=== PATIENT | male | born 1990 | race Hispanic/Latino ===

== ENCOUNTER 2018-03-25 18:17 | Inpatient (IN) | payer OTHER, SELFPAY ==
[~2018-03-25 18:17] MED LIST: ISOVUE-370 76%-LOCM 1 ML ONE
[2018-03-25] MEDS ORDERED: Fentanyl 100 MCG/2 ML VIAL ONE ×2 (18:25→18:35)
[2018-03-25] MEDS ORDERED: fentaNYL Citrate/PF 2,000 MCG in Sodium Chloride 0.9% 60 ML IV SCH ×2 (18:28→21:18)
[2018-03-25] MEDS ORDERED: Adacel (T-DAP) 0.5 ML VIAL ONE (18:30)
[2018-03-25] MEDS ORDERED: Midazolam HCl 2 mg/2 ml Vial ONE (18:33)
[2018-03-25] MEDS ORDERED: CEFAZOLIN 1 GM VIAL ONE (18:33)
[2018-03-25 18:41] LABS: #Basophils 0.1 thou/uL (0.0-0.2); #Eosinphils 0.2 thou/uL (0.0-0.7); #Lymphocytes 3.6 thou/uL (1.20-3.40); #Monocytes 0.8 thou/uL (0.11-0.59); #Neutrophils 7.6 thou/uL (1.40-6.50); %Basophils 0.8 % (0.0-1.0); %Eosinophils 1.6 % (0.0-10.0); %Lymphocytes 29.6 % (21.0-51.0); %Monocytes 6.1 % (0.0-10.0); %Neutrophils 61.9 % (42.0-75.0); Hemoglobin 15.7 g/dL (14.0-18.0); Mean Corpuscular HGB CONC 33.3 g/dL (32.0-36.0); Mean Corpuscular Hemoglobin 29.7 pg (27.0-31.0); Mean Corpuscular Volume 89.1 fL (78.0-98.0); Mean Platelet Volume 7.3 fL (7.4-10.4); Platelet Count 303 thou/uL (130-400); RBC Distribution Width 11.9 % (11.5-14.5); Red Blood Cell (RBC) Count 5.29 mill/uL (4.70-6.10); White Blood Cell (WBC) Count 12.3 thou/uL (4.8-10.8)
[2018-03-25 18:47] LABS: PTT 23.8 SEC (22.9-36.1); Prothrombin Time 13.4 SEC (12.0-14.7)
[2018-03-25] MEDS ORDERED: Sodium Chloride 0.9% 0 ML ONE (18:50)
[2018-03-25 18:54] LABS: ALT (SGPT) 210 U/L (8-55); AST (SGOT) 161 U/L (5-34); Albumin 4.6 g/dL (3.5-5.0); Alkaline Phosphatase 67 U/L (40-150); Anion Gap 17 mmol/L (10-20); BUN (Urea Nitrogen) 15 mg/dL (8.9-20.6); Bilirubin, Total 0.7 mg/dL (0.2-1.2); Calc. Creatinine Clearance 0 mL/min (70-130); Calcium 9.2 mg/dL (7.8-10.44); Carbon Dioxide 20 mmol/L (22-29); Chloride 106 mmol/L (98-107); Estimated GFR-MDRD 87; Globulin 2.8 g/dL (2.4-3.5); Glucose 135 mg/dL (70-105); Potassium 3.9 mmol/L (3.5-5.1); Protein, Total 7.4 g/dL (6.0-8.3); Sodium 139 mmol/L (136-145)
[2018-03-25 19:01] LABS: Bilirubin Negative (Negative); Blood, Urine Large (Negative); Clarity TURBID (Clear); Glucose, Urine (Dipstick) Negative (Negative); Leukocyte Negative (Negative); Nitrite Negative (Negative); Protein, Urine (Dipstick) 300 mg/dL (Neg-Trace); Specific Gravity, Urine 1.019 (1.002-1.036)
[2018-03-25 19:05] LABS: RBC/HPF GREATER THAN 50-TNTC HPF (0-3); Squamous Epithelial 21-50 HPF (0-3)
[2018-03-25 19:07] LABS: Pathc Cast-AUWi Flag 13.66 (0-2.49)
[2018-03-25 19:12] LABS: Hyaline Casts/LPF 4-6 HYALINE CAST LPF (0-3 Hyaline); Other Casts/LPF 0-3 FINELY GRAN LPF (0-3 Hyaline)
[2018-03-25 19:13] LABS: Bacteria/HPF 2+ HPF (None Seen); Crystals/HPF 1+ AMORPH URATES HPF (Negative); Manual Microscopic Reviewed? No Path Casts Seen; Renal Epithelial None Seen HPF (0-3); Transitional Epithelial NONE SEEN HPF (0-3)
[2018-03-25] MEDS ORDERED: Bacitracin Zinc Ointment 30 gm TUBE ONE (19:21)
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
[2018-03-25] MEDS ORDERED: Gentamicin 80 MG/2 ML VIAL ONE (19:22)
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
[2018-03-25 20:10] LABS: Amphetamine Not Detected (NotDetected); Barbiturates Screen Not Detected (NotDetected); Benzodiazepine Screen Not Detected (NotDetected); Cocaine Metabolite Screen Not Detected (NotDetected); Medtox Control Line Valid? VALID (VALID); Medtox Reader # READER 4; Methadone Not Detected (NotDetected); Methamphetamine Not Detected (NotDetected); Opiate Screen Not Detected (NotDetected); Oxycodone Screen Not Detected (NotDetected); Phencyclidine (PCP) Not Detected (NotDetected); THC/Cannabinoid Screen Not Detected (NotDetected); Tricyclic Screen Not Detected (NotDetected)
[2018-03-25] MEDS ORDERED: Propofol 1,000 MG/100 ML VIAL IV ONE (20:45)
[2018-03-25] MEDS: Propofol 1,000 MG/100 ML VIAL IV PRN (21:00)
[2018-03-25 21:04] VITALS: BMI 29.0
[2018-03-25] MEDS ORDERED: Ventilator Sedation Protocol 1 EACH FS SCH (21:16)
[2018-03-25] MEDS ORDERED: Dextrose 50% Abboject 50 ML SYRINGE SLOW IVP PRN (21:16)
[2018-03-25] MEDS ORDERED: Dextrose 5% in Water 1,000 ML IV PRN (21:16)
[2018-03-25] MEDS ORDERED: Fentanyl BOLUS 250 ML IVPB PRN (21:18)
[2018-03-25] MEDS ORDERED: Lorazepam 2 MG/ML VIAL SLOW IVP PRN (21:18)
[2018-03-25] MEDS ORDERED: Propofol BOLUS 1,000 MG/100 ML VIAL IV PRN (21:18)
[2018-03-25] MEDS ORDERED: DISCONTINUE PREVIOUS NARCOTIC PAIN MEDICATIONS AND BENZODIAZEPINES FS SCH (21:18)
[2018-03-25] MEDS ORDERED: Famotidine/PF 20 mg/2ml Vial SLOW IVP SCH (21:30)
[2018-03-25 21:31] LABS: Actual Bicarbonate (HCO3a) 23.1 mEq/L (22-28); Base Excess (BEa) -3.1 mEq/L (-2.0 to +3.0); CO2 Tension 45.3 mmHg (35.0-45.0); Calcium, Ionized 1.17 mmol/L (1.12-1.30); Carboxyhemoglobin (COHb) 0.9 gm% (0.0-3.0); Hemoglobin (Hb) 14.7 g/dL (14.0-18.0); O2 Tension (PaO2) 186.9 mmHg (80.0-100.0); pH, Arterial 7.33 (7.35-7.45)
[2018-03-25] MEDS: Sodium Chloride 0.9% 1,000 ML IV SCH (21:50)
[2018-03-25] MEDS: Gentamicin Sulfate 80 MG in Premix Bag 1 BAG IVPB SCH (21:56)
[2018-03-25] MEDS: CEFAZOLIN 1 GM in Sodium Chloride 0.9% 100 ML IVPB SCH (21:57)
[2018-03-25 22:10] LABS: Puncture Site R BRACHIAL
[2018-03-25 22:11] LABS: ALV-art Gradient 112.975 (0-20)
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
[2018-03-25 22:50] LABS: Lactic Acid 4.7 mmol/L (0.5-2.2)
[2018-03-26] MEDS ORDERED: Acetaminophen 1,000 MG in Premix Bag 1 BAG IVPB SCH ×2 (02:30→08:30)
[2018-03-26] MEDS ORDERED: Sodium Chloride 0.9% 1,000 ML IV SCH (02:30)
[2018-03-26] MEDS: Propofol 1,000 MG/100 ML VIAL IV PRN (02:39)
[2018-03-26] MEDS: Gentamicin Sulfate 80 MG in Premix Bag 1 BAG IVPB SCH (05:27)
[2018-03-26] MEDS: CEFAZOLIN 1 GM in Sodium Chloride 0.9% 100 ML IVPB SCH (05:40)
[2018-03-26 06:05] LABS: Anion Gap 14 mmol/L (10-20); BUN (Urea Nitrogen) 14 mg/dL (8.9-20.6); Calc. Creatinine Clearance 167 mL/min (70-130); Carbon Dioxide 20 mmol/L (22-29); Chloride 108 mmol/L (98-107); Estimated GFR-MDRD Greater than 90; Glucose 124 mg/dL (70-105); Potassium 3.8 mmol/L (3.5-5.1); Sodium 138 mmol/L (136-145)
[2018-03-26] MEDS ORDERED: Sodium Chloride 0.9% 500 ML IV SCH (06:15)
[2018-03-26 06:32] LABS: #Monocytes 1.4 thou/uL (0.11-0.59); #Neutrophils 15.2 thou/uL (1.40-6.50); %Eosinophils 0.1 % (0.0-10.0); %Lymphocytes 10.8 % (21.0-51.0); %Monocytes 7.8 % (0.0-10.0); %Neutrophils 81.3 % (42.0-75.0); Mean Corpuscular HGB CONC 33.8 g/dL (32.0-36.0); Mean Corpuscular Hemoglobin 30.6 pg (27.0-31.0); Mean Corpuscular Volume 90.5 fL (78.0-98.0); Mean Platelet Volume 7.9 fL (7.4-10.4); Platelet Count 238 thou/uL (130-400); RBC Distribution Width 12.1 % (11.5-14.5); Red Blood Cell (RBC) Count 3.92 mill/uL (4.70-6.10); White Blood Cell (WBC) Count 18.6 thou/uL (4.8-10.8)
[2018-03-26 07:18] LABS: Actual Bicarbonate (HCO3a) 23.6 mEq/L (22-28); Base Excess (BEa) 0.5 mEq/L (-2.0 to +3.0); Carboxyhemoglobin (COHb) 0.6 gm% (0.0-3.0); Hemoglobin (Hb) 11.8 g/dL (14.0-18.0); O2 Tension (PaO2) 123.3 mmHg (80.0-100.0); pH, Arterial 7.47 (7.35-7.45)
[2018-03-26 07:19] LABS: Calcium, Ionized 1.08 mmol/L (1.12-1.30); Potassium - ABG Lab 3.68 mmol/L (3.70-5.30); Puncture Site RRA
[2018-03-26] MEDS: Famotidine/PF 20 mg/2ml Vial SLOW IVP SCH ×2 (08:24→21:13)
[2018-03-26] MEDS: Sodium Chloride 0.9% 1,000 ML IV SCH ×2 (08:41→10:23)
[2018-03-26] MEDS ORDERED: Lactated Ringer's 1,000 ML IV SCH (08:45)
--- NOTE | 2018-03-26 09:02 | RAD ---
PORTABLE CHEST: HISTORY: Intubation and NG tube placement. COMPARISON: Earlier exam from the same day. FINDINGS: An endotracheal tube is present with the tip at the level of the clavicles. An NG tube has now been placed with the tip within the fundus of the stomach. It still could be advanced 1 to 2 inches for m ore optimal placement. The lungs are clear of infiltrates. IMPRESSION: Endotracheal and nasogastric tubes in position, as discussed above. POS: [facility]
[2018-03-26] MEDS ORDERED: traMADol HCl 50 MG TAB PO PRN (10:28)
[2018-03-26] MEDS ORDERED: traMADol HCl 50 MG TAB PO SCH ×2 (10:30→12:00)
[2018-03-26] MEDS ORDERED: Acetaminophen 500 MG TAB PO SCH ×2 (10:30→13:00)
[2018-03-26] MEDS: Ondansetron ODT 4 MG TAB PO PRN ×2 (10:37→15:29)
[2018-03-26] MEDS ORDERED: CEFAZOLIN 2 GM in Sodium Chloride 0.9% 100 ML IVPB SCH (12:27)
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
[2018-03-26] MEDS: traMADol HCl 50 MG TAB PO SCH ×3 (15:30→17:10)
[2018-03-26] MEDS: Acetaminophen 500 MG TAB PO SCH ×2 (15:33→16:30)
[2018-03-26] MEDS: CEFAZOLIN/Water 2 GM/20 ML SYRINGE SLOW IVP SCH ×2 (15:33→21:12)
[2018-03-26] MEDS: Acetaminophen 1,000 MG in Premix Bag 1 BAG IVPB SCH (16:39)
[2018-03-26] MEDS ORDERED: Scopolamine 1.5 mg/72 hour Patch TOP SCH (17:00)
[2018-03-26] MEDS: Polyethylene Glycol 3350 17 GM Packet PO SCH (17:51)
[2018-03-26] MEDS: Ketorolac Tromethamine 30 MG/ML VIAL IVP SCH (18:33)
[2018-03-26] MEDS: Ondansetron HCl/PF 4 MG/2 ML Vial IVP PRN (21:12)
[2018-03-26] MEDS: Senokot 8.6 MG TAB PO SCH (21:13)
[2018-03-27] MEDS: Sodium Chloride 0.9% 1,000 ML IV SCH ×4 (00:22→23:39)
[2018-03-27] MEDS: traMADol HCl 50 MG TAB PO SCH ×5 (00:23→23:40)
[2018-03-27] MEDS: Ketorolac Tromethamine 30 MG/ML VIAL IVP SCH ×2 (00:24→06:02)
[2018-03-27] MEDS: Acetaminophen 1,000 MG in Premix Bag 1 BAG IVPB SCH ×2 (00:24→06:01)
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
[2018-03-27] MEDS: CEFAZOLIN/Water 2 GM/20 ML SYRINGE SLOW IVP SCH ×3 (06:03→20:11)
[2018-03-27] MEDS: Famotidine/PF 20 mg/2ml Vial SLOW IVP SCH ×2 (09:42→20:10)
[2018-03-27] MEDS: Senokot 8.6 MG TAB PO SCH ×2 (09:43→20:11)
[2018-03-27] MEDS: Acetaminophen 500 MG TAB PO SCH ×3 (11:21→23:40)
[2018-03-27] MEDS: Ibuprofen 800 MG TAB PO SCH ×2 (11:21→18:34)
[2018-03-27 13:05] LABS: Anion Gap 7 mmol/L (10-20); BUN (Urea Nitrogen) 4 mg/dL (8.9-20.6); CK (CPK) 3043 U/L (30-200); Calc. Creatinine Clearance 203 mL/min (70-130); Calcium 8.6 mg/dL (7.8-10.44); Carbon Dioxide 28 mmol/L (22-29); Chloride 108 mmol/L (98-107); Estimated GFR-MDRD Greater than 90; Glucose 105 mg/dL (70-105); Potassium 3.7 mmol/L (3.5-5.1); Sodium 139 mmol/L (136-145)
[2018-03-27] MEDS: Polyethylene Glycol 3350 17 GM Packet PO SCH (17:08)
[2018-03-27] MEDS: Ondansetron HCl/PF 4 MG/2 ML Vial IVP PRN (20:11)
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
[2018-03-28] MEDS: Ibuprofen 800 MG TAB PO SCH ×2 (03:53→10:28)
[2018-03-28] MEDS: Acetaminophen 500 MG TAB PO SCH ×2 (03:53→10:28)
[2018-03-28] MEDS: CEFAZOLIN/Water 2 GM/20 ML SYRINGE SLOW IVP SCH (05:08)
[2018-03-28] MEDS: traMADol HCl 50 MG TAB PO SCH ×2 (05:08→10:28)
[2018-03-28] MEDS: Sodium Chloride 0.9% 1,000 ML IV SCH (05:09)
[2018-03-28] MEDS: Famotidine/PF 20 mg/2ml Vial SLOW IVP SCH (08:07)
[2018-03-28] MEDS: Senokot 8.6 MG TAB PO SCH (08:07)
[2018-03-28 09:10] VITALS: BP 127/80; TEMP 97.9
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
== END 2018-03-28 11:40 | disposition home or self-care (01) | DRG 40 ==
LOC: ERS 18:17 → EDBD 18:17 → SDC 18:58 → CCU 20:09 → SJJU 03-26 17:22
PROVIDERS: ADMIT Specialist; ATTEND Specialist
PROC: 0BH17EZ Insertion of Endotracheal Airway into Trachea, Via Natural or Artificial Opening (ICD-10-PCS; 2018-03-25)
PROC: 5A1935Z Respiratory Ventilation, Less than 24 Consecutive Hours (ICD-10-PCS; 2018-03-25)
PROC: 0KD80ZZ Extraction of Left Upper Arm Muscle, Open Approach (ICD-10-PCS; principal; 2018-03-26)
PROC: 0K9800Z Drainage of Left Upper Arm Muscle with Drainage Device, Open Approach (ICD-10-PCS; 2018-03-26)
PROC: 0KQ80ZZ Repair Left Upper Arm Muscle, Open Approach (ICD-10-PCS; 2018-03-26)
DX: S06.9X9A Unspecified intracranial injury with loss of consciousness of unspecified duration, initial encounter (principal); J96.00 Acute respiratory failure, unspecified whether with hypoxia or hypercapnia; M62.82 Rhabdomyolysis; R40.2411 Glasgow coma scale score 13-15, in the field [EMT or ambulance]; S41.112A Laceration without foreign body of left upper arm, initial encounter; V89.2XXA Person injured in unspecified motor-vehicle accident, traffic, initial encounter; T14.8XXA Other injury of unspecified body region, initial encounter
CPT/HCPCS: 36415; 36416; 51702; 70450; 71045; 71260; 72125; 72170; 74177; 80048; 80053; 80306; 81003; 81015; 82150; 82550; 82805; 83605; 85025; 85610; 85730; 86850; 86900; 86901; 87086; 90471; 90715; 94003; 94640; 94760; 96374; 96375; A4216; G0390; G8978-GP-CM; G8979-GP-CJ; G8987-GO-CL; G8988-GO-CI; J0131; J0690; J1580; J1885; J2060; J2250; J2270; J2405; J2704; J3010; J3490; J7050; J7620; Q0162; S0028

== ENCOUNTER 2018-04-03 19:23 | Inpatient (IN) | payer SELFPAY ==
[2018-04-03] MEDS ORDERED: Ondansetron HCl/PF 4 MG/2 ML Vial ONE (19:59)
[2018-04-03] MEDS ORDERED: Morphine 4 MG/ML VIAL ONE ×2 (20:08→22:08)
[2018-04-03 20:34] LABS: #Eosinphils 0.5 thou/uL (0.0-0.7); #Monocytes 0.8 thou/uL (0.11-0.59); #Neutrophils 5.5 thou/uL (1.40-6.50); %Basophils 0.2 % (0.0-1.0); %Eosinophils 5.1 % (0.0-10.0); %Lymphocytes 22.9 % (21.0-51.0); %Monocytes 9.5 % (0.0-10.0); %Neutrophils 62.3 % (42.0-75.0); Hemoglobin 12.8 g/dL (14.0-18.0); Mean Corpuscular HGB CONC 33.4 g/dL (32.0-36.0); Mean Corpuscular Hemoglobin 30.5 pg (27.0-31.0); Mean Corpuscular Volume 91.3 fL (78.0-98.0); Mean Platelet Volume 6.6 fL (7.4-10.4); Platelet Count 413 thou/uL (130-400); RBC Distribution Width 12.9 % (11.5-14.5); Red Blood Cell (RBC) Count 4.19 mill/uL (4.70-6.10); White Blood Cell (WBC) Count 8.9 thou/uL (4.8-10.8)
[2018-04-03 20:57] LABS: ALT (SGPT) 55 U/L (8-55); AST (SGOT) 28 U/L (5-34); Albumin 4.7 g/dL (3.5-5.0); Alkaline Phosphatase 71 U/L (40-150); Anion Gap 11 mmol/L (10-20); BUN (Urea Nitrogen) 12 mg/dL (8.9-20.6); Bilirubin, Total 0.7 mg/dL (0.2-1.2); Calc. Creatinine Clearance 0 mL/min (70-130); Calcium 9.6 mg/dL (7.8-10.44); Carbon Dioxide 27 mmol/L (22-29); Chloride 102 mmol/L (98-107); Estimated GFR-MDRD 87; Globulin 3.4 g/dL (2.4-3.5); Glucose 111 mg/dL (70-105); Potassium 3.8 mmol/L (3.5-5.1); Protein, Total 8.1 g/dL (6.0-8.3); Sodium 136 mmol/L (136-145)
--- NOTE | 2018-04-03 21:11 | RAD ---
TWO VIEWS LEFT HUMERUS: 04/03/18 HISTORY: Left arm pain. Left upper extremity wound with swelling and purulent drainage. COMPARISON: 03/25/18. FINDINGS: The previously noted soft tissue defect and subcutaneous emphysema has significantly improved. There are a few irregular radiopaque densities overlying the lateral aspect of the mid left upper extremity likely related to radiopaque foreign bodies, largest measuring approximately 4 mm located in the sof t tissues adjacent to the mid diaphysis of the humerus. Smaller radiopaque density is seen more later ally and superiorly with a few punctate densities seen lateral to the larger radiopaque foreign body. There is mild irregularity of the soft tissues at the lateral aspect of the left arm, although this has improved from prior study as noted above. there is no fracture or dislocation. No osseous destruc tion is seen to suggest osteomyelitis. There is suggestion of subcutaneous soft tissue swelling at th e level of the elbow. IMPRESSION: 1. Improvement in soft tissue wound and defect involving the mid portion of the left arm. There is mild irregularity likely related to the persistence of the wound, although this has significantly improved. There is soft tissue swelling lateral aspect left mid arm as well as at the level of the el bow. 2. Radiopaque foreign bodies lateral subcutaneous soft tissues of the mid arm. 3. No radiographic findings to suggest osteomyelitis, but MRI would be more sensitive study of shaq moser for further evaluation. POS: [facility]
[2018-04-03] MEDS ORDERED: Piperacillin/Tazobactam 4.5 GM VIAL ONE (21:35)
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
[2018-04-03] MEDS ORDERED: traMADol HCl 50 MG TAB PO PRN (22:19)
[2018-04-03] MEDS ORDERED: Dextrose 50% Abboject 50 ML SYRINGE SLOW IVP PRN (22:20)
[2018-04-03] MEDS ORDERED: Ondansetron HCl/PF 4 MG/2 ML Vial IVP PRN (22:20)
[2018-04-03] MEDS ORDERED: Dextrose 5% in Water 1,000 ML IV PRN (22:20)
[2018-04-03] MEDS ORDERED: Ondansetron ODT 4 MG TAB PO PRN (22:20)
--- NOTE | 2018-04-03 22:48 | RAD ---
RADIOGRAPH LEFT ANKLE 3 VIEWS: 04/03/18 HISTORY: 27-year-old male with left ankle pain, drainage, and swelling. FINDINGS: Ankle mortise is symmetrical. No periostitis or permeative lesion. No fracture, dislocation or sublux ation. IMPRESSION: Negative. POS: [facility]
--- NOTE | 2018-04-03 22:50 | RAD ---
RADIOGRAPH LEFT FOOT 3 VIEWS: 04/03/18 HISTORY: 27-year-old male with left foot pain, drainage, and swelling. COMPARISON: None. FINDINGS: There is pes planus. There is no periostitis, permeative lesion, fracture or dislocation. Joint space s are maintained without erosions or large osteophytes. No subcutaneous emphysema. IMPRESSION: 1. Pes planus. 2. Otherwise negative. POS: [facility]
[2018-04-03] MEDS: Ketorolac Tromethamine 30 MG/ML VIAL IVP SCH (23:24)
[2018-04-03] MEDS: Acetaminophen 500 MG TAB PO SCH (23:25)
[2018-04-03] MEDS: traMADol HCl 50 MG TAB PO SCH (23:29)
[2018-04-03 23:53] VITALS: BMI 28.3
[2018-04-04] MEDS: Piperacillin/Tazobactam 3.375 GM in Sodium Chloride 0.9% 100 ML IVPB SCH ×2 (00:37→04:50)
[2018-04-04] MEDS: Sodium Chloride 0.9% 1,000 ML IV SCH ×4 (00:37→18:06)
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
[2018-04-04] MEDS: traMADol HCl 50 MG TAB PO SCH ×3 (04:31→16:46)
[2018-04-04] MEDS: Acetaminophen 500 MG TAB PO SCH ×3 (04:31→16:45)
[2018-04-04] MEDS: Ketorolac Tromethamine 30 MG/ML VIAL IVP SCH ×3 (04:49→18:08)
[2018-04-04] MEDS: Morphine 2 MG/ML SYRINGE IVP PRN ×2 (04:50→09:14)
[2018-04-04 04:59] LABS: #Eosinphils 0.5 thou/uL (0.0-0.7); #Lymphocytes 1.9 thou/uL (1.20-3.40); #Monocytes 0.9 thou/uL (0.11-0.59); %Basophils 0.4 % (0.0-1.0); %Lymphocytes 25.4 % (21.0-51.0); %Monocytes 12.6 % (0.0-10.0); %Neutrophils 54.6 % (42.0-75.0); Hemoglobin 11.5 g/dL (14.0-18.0); Mean Corpuscular HGB CONC 33.7 g/dL (32.0-36.0); Mean Platelet Volume 6.7 fL (7.4-10.4); Platelet Count 345 thou/uL (130-400); Red Blood Cell (RBC) Count 3.72 mill/uL (4.70-6.10); White Blood Cell (WBC) Count 7.3 thou/uL (4.8-10.8)
[2018-04-04 05:23] LABS: Anion Gap 12 mmol/L (10-20); BUN (Urea Nitrogen) 14 mg/dL (8.9-20.6); Calc. Creatinine Clearance 155 mL/min (70-130); Calcium 8.9 mg/dL (7.8-10.44); Carbon Dioxide 26 mmol/L (22-29); Chloride 107 mmol/L (98-107); Estimated GFR-MDRD Greater than 90; Glucose 103 mg/dL (70-105); Magnesium 2.3 mg/dL (1.6-2.6); Phosphorus 5.4 mg/dL (2.3-4.7); Potassium 3.9 mmol/L (3.5-5.1); Sodium 141 mmol/L (136-145)
[2018-04-04] MEDS ORDERED: Vancomycin HCl 1 GM in Premix Bag 1 BAG IVPB SCH (09:00)
[2018-04-04] MEDS ORDERED: Amoxicillin/Potassium Clav 875 MG TAB PO SCH (10:30)
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
[2018-04-04] MEDS: Amoxicillin/Potassium Clav 875 MG TAB PO SCH (20:41)
[2018-04-05] MEDS: traMADol HCl 50 MG TAB PO SCH ×3 (00:01→12:00)
[2018-04-05] MEDS: Ketorolac Tromethamine 30 MG/ML VIAL IVP SCH ×2 (00:01→05:25)
[2018-04-05] MEDS: Sodium Chloride 0.9% 1,000 ML IV SCH ×2 (00:02→06:17)
[2018-04-05] MEDS: Acetaminophen 500 MG TAB PO SCH ×3 (05:30→12:00)
[2018-04-05] MEDS: Amoxicillin/Potassium Clav 875 MG TAB PO SCH (08:10)
[2018-04-05] MEDS: Morphine 2 MG/ML SYRINGE IVP PRN (08:14)
[2018-04-05 12:29] VITALS: BP 135/83; TEMP 98
== END 2018-04-05 12:26 | disposition home or self-care (01) | DRG 603 ==
LOC: ERS 19:23 → T4-B 23:13 → OBSVTOIN 23:13
PROVIDERS: ADMIT Surgery; ATTEND Surgery
DX: L03.114 Cellulitis of left upper limb (principal); I96 Gangrene, not elsewhere classified; Z79.82 Long term (current) use of aspirin
CPT/HCPCS: 36415; 80048; 80053; 83605; 83735; 84100; 85025; 87040; 87070; 87205; 96365; 96375; 96376; J1885; J2270; J2405; J2543; J3370; J7050; Q0162

== ENCOUNTER 2020-03-11 20:25 | Emergency (ER) | payer SELFPAY | END 2020-03-11 21:11 | disposition home or self-care (01) | LOC: ERS 20:25 | DX: T70.29XA Other effects of high altitude, initial encounter (principal) | CPT/HCPCS: 99282 ==

== ENCOUNTER 2022-07-25 | Emergency (ER) | payer OTHER, SELFPAY ==
[2022-07-25] MEDS ORDERED: Boostrix 0.5 ML (Tdap) VIAL (>/=7 yrs of age) ONE (01:09)
== END 2022-07-25 01:55 ==
LOC: ERS
DX: S09.90XA Unspecified injury of head, initial encounter (principal); S00.03XA Contusion of scalp, initial encounter; S00.412A Abrasion of left ear, initial encounter; Z23 Encounter for immunization; V89.2XXA Person injured in unspecified motor-vehicle accident, traffic, initial encounter
CPT/HCPCS: 70450; 71045; 72125; 90715

== ENCOUNTER 2022-07-25 13:02 | Emergency (ER) | payer OTHER, SELFPAY ==
[2022-07-25] MEDS ORDERED: HYDROcodone/Acetaminophen 7.5/325 mg Tablet ONE (13:33)
== END 2022-07-25 18:25 | disposition home or self-care (01) ==
LOC: ERS 13:02
DX: S00.03XA Contusion of scalp, initial encounter (principal); S40.012A Contusion of left shoulder, initial encounter; S80.01XA Contusion of right knee, initial encounter; V89.2XXA Person injured in unspecified motor-vehicle accident, traffic, initial encounter
CPT/HCPCS: 70486; 71045

== ENCOUNTER → 2022-09-25 | Day surgery (SDC) | payer OTHER ==
[~2022-09-25] MED LIST changes: +EPINEPHrine 1 MG/ML AMP ONE; -ISOVUE-370 76%-LOCM 1 ML ONE; +Iopamidol 300 61% 100 ML VIAL FS ONE; +Lidocaine 1% PF 5 ML VIAL ONE; +Sodium Chloride 0.9% (PF) 10 ML VIAL ONE
== END | disposition home or self-care (01) ==
LOC: RAD 08:47
PROVIDERS: ATTEND Orthopaedic Surgery
PROC: BP291ZZ Computerized Tomography (CT Scan) of Left Shoulder using Low Osmolar Contrast (ICD-10-PCS; principal; 2022-09-25)
DX: G24.9 Dystonia, unspecified (principal); M62.512 Muscle wasting and atrophy, not elsewhere classified, left shoulder
CPT/HCPCS: 23350; J0171; Q9967